=== PATIENT | female | born 1995 | race Caucasian/White ===

== ENCOUNTER → 2016-06-08 | Outpatient (REF) | payer BC | LOC: M SFHCLERA 14:24 | PROVIDERS: ATTEND Nurse Practitioner Family | DX: R30.0 Dysuria (principal) ==

== ENCOUNTER 2016-07-11 03:26 | Emergency (ER) | payer BC ==
[2016-07-11] MEDS ORDERED: KETOROLAC 30 MG/ML VIAL (J1885) As Ordered ONE (06:30)
[2016-07-11] MEDS ORDERED: BACTRIM 160MG/800MG DS TAB As Ordered ONE (06:31)
[2016-07-11 06:42] LABS: CONTROL LINE HCG INT CTR LINE PRESENT
[2016-07-11 06:46] LABS: ANION GAP 8 MEQ/L (8-16); BLOOD UREA NITROGEN 14 MG/DL (7-18); CALCIUM LEVEL 8.8 MG/DL (8.5-10.1); CARBON DIOXIDE LEVEL 27 MEQ/L (21-32); CHLORIDE LEVEL 108 MEQ/L (98-107); GLUCOSE, FASTING 101 MG/DL (70-105); POTASSIUM SERUM 3.5 MEQ/L (3.5-5.1); SODIUM LEVEL 143 MEQ/L (136-145)
[2016-07-11 06:51] LABS: BASO % 0.4 % (0.0-1.0); EOS # 0.2 K/mm3 (0.0-0.50); EOS % 2.7 % (0.0-3.0); LARGE UNSTAINED CELL # 0.2 K/mm3 (0.0-0.4); LARGE UNSTAINED CELL % 2.1 % (0.0-4.0); LYMPH # 1.9 K/mm3 (1.5-6.5); LYMPH % 23.3 % (24.0-44.0); MEAN CORPUSCULAR HEMOGLOBIN 20.3 pg (27.0-33.0); MEAN CORPUSCULAR VOLUME 69.9 fl (80.0-96.0); MONO # 0.4 K/mm3 (0.0-0.8); MONO % 5.8 % (0.0-5.0); NEUTROPHILS # 4.9 K/mm3 (1.8-7.7); NEUTROPHILS % 65.8 % (36.0-66.0); PLATELET COUNT, AUTOMATED 268 k/mm3 (150-450); RED CELL DISTRIBUTION WIDTH 16.5 % (11.5-14.5); WHITE BLOOD COUNT 7.5 K/mm3 (4.0-10.0)
[2016-07-11 06:53] LABS: ADD MORPHOLOGY? YES
[2016-07-11 07:18] LABS: ANISOCYTOSIS 1+; HYPOCHROMASIA 1+
[2016-07-11 07:19] LABS: MICROCYTOSIS 1+
--- NOTE | 2016-07-11 07:20 | REPUSA ---
CLINICAL HISTORY: Left flank pain. TECHNIQUE: Multiple axial and coronal CT images were obtained through the abdomen and pelvis without administration of oral or IV contrast material. COMMENTS: The liver is of uniform attenuation without mass or defect. There is no intra or extrahepatic biliary ductal dilatation. The spleen is normal. The gallbladder is within normal limits. The pancreas is of normal contour and attenuation characteristics. There is no evidence of adrenal mass. The kidneys are normal in size, shape and configuration. No renal or ureteral calculi are identified. There is no hydroureter or hydronephrosis. There is no evidence for appendicitis. There is no bowel wall thickening. No evidence for small or la rge bowel obstruction. There is no evidence of abdominal ascites or lymphadenopathy. There is no evidence of intrinsic or extrinsic bladder mass. There is no pelvic ascites or lymphadeno cuca. Diffuse thickening of the wall of the bladder. Images of the lung bases show no evidence of pleural or parenchymal mass. There are no pleural effusi ons. Atelectatic changes in the lingula and right middle lobe. The bony structures are free of lytic or blastic lesions. IMPRESSION: Thickened bladder suggestive of fact cystitis. Moderate constipation. Thank you for your kind referral of this patient.
--- NOTE | 2016-07-11 09:13 | EDDOCDS ---
Nurse's Notes [facility] Name: Stephanie Duron Age: 20 yrs Sex: Female : 1995 Arrival Date: 07/11/2016 Time: 03:26 Bed 17 Private MD: Diagnosis: Urinary tract infection, site not specified;Constipation Presentation: 07/11 03:45 Presenting complaint: Patient states: Had a UTI a month ago and was seen at the Ur[facility], reports she was given antibiotics but only took 2-3 days of them. Not presents with low back pain worse on left, nausea and burning with urination. Pain is currently 6/10. Adult Sepsis Screening: The patient does not have new or worsening altered mentation. Patient's respiratory rate is less than 22. Systolic blood pressure is greater than 100. Patient has a qSOFA score of 0- Negative Sepsis Screen. Suicide/Homicide risk assessment- the patient denies having any suicidal and/or homicidal ideations and does not present with any other emotional, behavioral or mental health complaints. 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 Transition of care: patient was not received from another setting of care. 03:45 Acuity: JERAD Level 3 lf1 03:45 Method Of Arrival: Walkin/Carried/Asstd lf1 Triage Assessment: 03:48 General: Appears in no apparent distress, comfortable, Behavior is cooperative. Pain: lf1 Location: low back, left flank Pain currently is 7 out of 10 on a pain scale. HIV screening NA for this visit. Neurological: Level of Consciousness is awake, alert, Oriented to person, place, time. EENT: No deficits noted. Cardiovascular: Chest pain is denied. Respiratory: Respiratory effort is even, unlabored. GI: Reports nausea. : Reports burning with urination. Derm: Skin is normal. 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 none - PMHx: Hypothyroidism; - PSHx: none; - Social history: Smoking status: Patient states was never smoker of tobacco. No barriers to communication noted, The patient speaks fluent Barbadian, Speaks appropriately for age, Preferred Language: Barbadian. - Family history: Not pertinent. - : The pt / caregiver states he / she is not on anticoagulants. Home medication list is obtained from the patient. - Exposure Risk Screening:: None identified. Screenin:52 Screening information is obtained from the patient. Fall risk: No risks identified. lf1 Assistance ADL's: requires no assistance with activities of daily living. Abuse/DV Screen: The patient / caregiver reports he/she is: not in a situation that causes fear, pain or injury. Nutritional screening: No deficits noted. Advance Directives: Currently, there is no health care proxy. home support is adequate. Assessment: 05:52 General: Appears in no apparent distress, comfortable, Behavior is appropriate for age, af2 cooperative. Neurological: Level of Consciousness is awake, alert, Oriented to person, place, time. Respiratory: Airway is patent Respiratory effort is even, unlabored. : Reports burning with urination pain in right flank(s) urgency. Derm: Skin is normal. 06:28 Reassessment: Patient appears in no apparent distress at this time. Patient states af2 symptoms have not improved. 07:15 General: Appears in no apparent distress, comfortable, Behavior is appropriate for age, mlb1 cooperative. Pain: Location: low back area Pain currently is 5 out of 10 on a pain scale. Neurological: No deficits noted. Musculoskeletal: No deficits noted. 08:10 General: Appears in no apparent distress, comfortable, Behavior is appropriate for age, mlb1 cooperative. Pain: Location: low back area Pain currently is 5 out of 10 on a pain scale. 08:52 General: Appears in no apparent distress, comfortable, Behavior is appropriate for age, mlb1 cooperative. Pain: Denies pain. Respiratory: No deficits noted. Musculoskeletal: No deficits noted. 09:10 General: Appears in no apparent distress, comfortable, Behavior is appropriate for age, mlb1 cooperative. Pain: Denies pain. Respiratory: No deficits noted. Derm: No deficits noted. Vital Signs: 03:48 BP 143 / 93; Pulse 94; Resp 16; Temp 99.1(TE); Pulse Ox 96% on R/A; Weight 61.23 kg lf1 (R); Height 5 ft. 9 in. (175.26 cm) (R); Pain 7/10; 09:10 BP 113 / 70; Pulse 76; Resp 16; Temp 98.1(O); Pulse Ox 98% on R/A; Pain 0/10; mlb1 03:48 Body Mass Index 19.94 (61.23 kg, 175.26 cm) lf1 Vitals: 03:48 Log In Time: July 11, 2016 at 03:28. lf1 ED Course: 03:27 Patient visited by May Walsh Reg. hs2 03:27 Patient moved to Waiting hs2 03:44 Patient moved to Triage 1 lf1 03:47 Triage Initiated lf1 03:55 Patient moved to Pre RCE lf1 05:03 Supriya Vyas RN is Primary Nurse. lf1 05:03 Patient moved to 17 lf1 05:37 Luis Gardner DO is Attending Physician. cs11 05:37 Patient visited by Luis Gardner DO. cs11 05:47 UA Sent. af2 05:51 Urine Culture Sent. af2 05:52 The patient / caregiver is instructed regarding the plan of care and ED course. af2 05:52 No IV's were initiated during this patient's visit. No procedures done that require af2 assistance. 05:53 Patient visited by Supriya Vyas RN. af2 06:01 ON LICENSE OF [facility] Payment Agreement was scanned into [employer] and attached to record. pm4 06:27 Patient visited by Supriya Vyas RN. af2 06:27 HCG,Serum Qualitative Sent. af2 06:28 MED Profile Sent. af2 06:28 CBC with Diff Sent. af2 06:28 Inserted saline lock: 20 gauge in right antecubital area and blood collected. The af2 patient tolerated the procedure well. 06:57 Attending Physician role handed off by Luis Gardner DO sd1 06:57 Atiya Coombs MD is Attending Physician. sd1 07:15 Patient visited by Victor M Plummer, MARIAH. mlb1 07:37 CT ABD & PELVIS: No Contrast Returned. EDMS 07:59 GC & Chlamydia Amplification Sent. mlb1 08:11 Patient visited by Victor M Plummer, MARIAH. mlb1 08:52 Patient visited by Victor M Plummer, RN. mlb1 09:01 [facility] is Referral Physician. sd1 09:11 Patient visited by Victor M Plummer, RN. mlb1 09:11 Discontinued lock intact, bleeding controlled, pressure dressing applied, No mlb1 redness/swelling at site. Administered Medications: 06:44 Drug: ketorolac 30 mg [ketorolac 30 mg/mL (1 mL) injection solution (1 mL)] Route: IVP; af2 Site: right antecubital; 06:45 Drug: Trimethoprim-Sulfamethoxazole (MRSA dose) 2 tabs [sulfamethoxazole 800 af2 mg-trimethoprim 160 mg tablet (2 tabs)] Route: PO; 06:45 Drug: NS 0.9% 1000 ml [sodium chloride 0.9 % intravenous solution] Route: IV; Rate: af2 bolus; Site: right antecubital; Order Results: Lab Order: UA; SPEC'M 07/11/16 05:43 Test: APPEARANCE, URINE; Value: CLEAR; Range: CLEAR; Status: F Test: COLOR, URINE; Value: STRAW; Range: YELLOW; Status: F Test: PH,URINE; Value: 6.0; Range: 5.0-9.0; Units: UNITS; Status: F Test: SPECIFIC GRAVITY URINE AUTO; Value: 1.010; Range: 1.002-1.035; Status: F Test: PROTEIN, URINE AUTO; Value: NEGATIVE; Range: NEGATIVE; Units: mg/dL; Status: F Test: GLUCOSE, URINE (UA) AUTO; Value: NEGATIVE; Range: NEGATIVE; Units: mg/dL; Status: F Test: KETONE, URINE AUTO; Value: NEGATIVE; Range: NEGATIVE; Units: mg/dL; Status: F Test: UROBILINOGEN, URINE AUTO; Value: 0.2; Range: 0.0-2.0; Units: mg/dL; Status: F Test: BILIRUBIN, URINE AUTO; Value: NEGATIVE; Range: NEGATIVE; Status: F Test: NITRITE, URINE AUTO; Value: NEGATIVE; Range: NEGATIVE; Status: F Test: LEUKOCYTE ESTERASE, URINE AUTO; Value: TRACE; Range: NEGATIVE; Abnormal: Above high normal; Status: F Test: BLOOD, URINE BLOOD; Value: 3+; Range: NEGATIVE; Abnormal: Above high normal; Status: F Test: WBC, URINE AUTO; Value: 3; Range: 0-3; Units: /HPF; Status: F Test: RBC, URINE AUTO; Value: 110; Range: 0-3; Abnormal: Above high normal; Units: /HPF; Status: F Test: BACTERIA, URINE AUTO; Value: NEGATIVE; Range: NEGATIVE; Status: F Test: SQUAMOUS EPITHELIAL CELL UR AU; Value: 3; Range: 0-6; Units: /HPF; Status: F Test: MUCUS, URINE; Value: SMALL; Range: NEGATIVE; Status: F Test: HYALINE CAST, URINE AUTO; Value: 0; Range: 0-1; Units: /LPF; Status: F Lab Order: CBC with Diff; SPEC'M 07/11/16 06:25 Test: WHITE BLOOD COUNT; Value: 7.5; Range: 4.0-10.0; Units: K/mm3; Status: F Test: RED BLOOD COUNT; Value: 4.01; Range: 4.00-5.40; Units: M/mm3; Status: F Test: HEMOGLOBIN; Value: 8.1; Range: 12.0-16.0; Abnormal: Below low normal; Units: g/dl; Status: F Test: HEMATOCRIT; Value: 28.0; Range: 36.0-47.0; Abnormal: Below low normal; Units: %; Status: F Test: MEAN CORPUSCULAR VOLUME; Value: 69.9; Range: 80.0-96.0; Abnormal: Below low normal; Units: fl; Status: F Test: MEAN CORPUSCULAR HEMOGLOBIN; Value: 20.3; Range: 27.0-33.0; Abnormal: Below low normal; Units: pg; Status: F Test: MEAN CORPUSCULAR HGB CONC; Value: 29.0; Range: 32.0-36.5; Abnormal: Below low normal; Units: g/dl; Status: F Test: RED CELL DISTRIBUTION WIDTH; Value: 16.5; Range: 11.5-14.5; Abnormal: Above high normal; Units: %; Status: F Test: PLATELET COUNT, AUTOMATED; Value: 268; Range: 150-450; Units: k/mm3; Status: F Test: NEUTROPHILS %; Value: 65.8; Range: 36.0-66.0; Units: %; Status: F Test: LYMPH %; Value: 23.3; Range: 24.0-44.0; Abnormal: Below low normal; Units: %; Status: F Test: MONO %; Value: 5.8; Range: 0.0-5.0; Abnormal: Above high normal; Units: %; Status: F Test: EOS %; Value: 2.7; Range: 0.0-3.0; Units: %; Status: F Test: BASO %; Value: 0.4; Range: 0.0-1.0; Units: %; Status: F Test: LARGE UNSTAINED CELL %; Value: 2.1; Range: 0.0-4.0; Units: %; Status: F Test: NEUTROPHILS #; Value: 4.9; Range: 1.8-7.7; Units: K/mm3; Status: F Test: LYMPH #; Value: 1.9; Range: 1.5-6.5; Units: K/mm3; Status: F Test: MONO #; Value: 0.4; Range: 0.0-0.8; Units: K/mm3; Status: F Test: EOS #; Value: 0.2; Range: 0.0-0.50; Units: K/mm3; Status: F Test: BASO #; Value: 0.0; Range: 0.0-0.2; Units: K/mm3; Status: F Test: LARGE UNSTAINED CELL #; Value: 0.2; Range: 0.0-0.4; Units: K/mm3; Status: F Lab Order: MED Profile; SPEC'M 07/11/16 06:25 Test: GLUCOSE, FASTING; Value: 101; Range: 70-105; Units: MG/DL; Status: F Test: BLOOD UREA NITROGEN; Value: 14; Range: 7-18; Units: MG/DL; Status: F Test: CREATININE FOR GFR; Value: 0.80; Range: 0.55-1.02; Units: MG/DL; Status: F Test: SODIUM LEVEL; Value: 143; Range: 136-145; Units: MEQ/L; Status: F Test: POTASSIUM SERUM; Value: 3.5; Range: 3.5-5.1; Units: MEQ/L; Status: F Test: CHLORIDE LEVEL; Value: 108; Range: 98-107; Abnormal: Above high normal; Units: MEQ/L; Status: F Test: CARBON DIOXIDE LEVEL; Value: 27; Range: 21-32; Units: MEQ/L; Status: F Test: ANION GAP; Value: 8; Range: 8-16; Units: MEQ/L; Status: F Test: CALCIUM LEVEL; Value: 8.8; Range: 8.5-10.1; Units: MG/DL; Status: F Lab Order: HCG,Serum Qualitative; SPEC'M 07/11/16 06:25 Test: HCG, SERUM QUALITATIVE; Value: NEGATIVE; Range: NEGATIVE; Status: F Lab Order: RBC MORPH PROF NO CHARGE; SPEC'M 07/11/16 06:25 Test: PLATELET ESTIMATE; Range: NORMAL; Status: I Test: HYPOCHROMASIA; Value: 1+; Status: F Test: ANISOCYTOSIS; Value: 1+; Status: F Test: MICROCYTOSIS; Value: 1+; Status: F Test: PLATELET ESTIMATE; Value: NORMAL; Range: NORMAL; Status: F Radiology Order: CT ABD & PELVIS: No Contrast Test: CT ABD & PELVIS: No Contrast REASON FOR EXAMINATION: Renal colic; ; CLINICAL HISTORY: Left flank pain.; TECHNIQUE: Multiple axial and coronal CT images were obtained through the abdomen and pelvis without; administration of oral or IV contrast material.; COMMENTS:; The liver is of uniform attenuation without mass or defect. There is no intra or extrahepatic biliary; ductal dilatation. The spleen is normal. The gallbladder is within normal limits. The pancreas is of; normal contour and attenuation characteristics. There is no evidence of adrenal mass.; The kidneys are normal in size, shape and configuration. No renal or ureteral calculi are identified.; There is no hydroureter or hydronephrosis.; There is no evidence for appendicitis. There is no bowel wall thickening. No evidence for small or la; rge bowel obstruction. There is no evidence of abdominal ascites or lymphadenopathy.; There is no evidence of intrinsic or extrinsic bladder mass. There is no pelvic ascites or lymphadeno; cuca.; Diffuse thickening of the wall of the bladder.; Images of the lung bases show no evidence of pleural or parenchymal mass. There are no pleural effusi; ons. Atelectatic changes in the lingula and right middle lobe.; The bony structures are free of lytic or blastic lesions.; IMPRESSION:; Thickened bladder suggestive of fact cystitis.; Moderate constipation.; Thank you for your kind referral of this patient.; ; Outcome: 07:15 CT Study completed. mlb1 09:01 Discharge ordered by Provider. sd1 09:11 Discharge Assessment: Patient awake, alert and oriented x 3. No cognitive and/or mlb1 functional deficits noted. Patient verbalized understanding of disposition instructions. patient administered narcotics - no. The following High Risk Discharge criteria are identified: None. Discharged to home ambulatory. Condition: good. Discharge instructions given to patient, Instructed on discharge instructions, follow up and referral plans. medication usage, no driving heavy equipment, Demonstrated understanding of instructions, medications, Pt was receptive of discharge instructions/ teaching. Prescriptions given X 3. Property sent home with patient. 09:11 Patient left the ED. mlb1 Signatures: Dispatcher Med[employer] EDMS Atiya Coombs MD MD sd1 Victor M Plummer RN RN mlb1 Celine McintyreRN RN lf1 Luis Gardner, DO cs11 Supriya Vyas RN RN af2 May Walsh, Reg Reg hs2 Oliverio Carter, Reg Reg pm4 [employer]BIND
--- NOTE | 2016-07-11 09:13 | EDDOCDS ---
Physician Documentation [facility] Name: Stephanie Duron Age: 20 yrs Sex: Female : 1995 Arrival Date: 07/11/2016 Time: 03:26 Bed 17 Private MD: Disposition: 07/11/16 09:01 Discharged to Home/Self Care. Impression: Urinary tract infection, site not specified, Constipation. - Condition is Stable. - Discharge Instructions: Urinary Tract Infection, Constipation, Adult, [id number], Urinary Tract Infection, [id number]. - Prescriptions for Cipro 500 mg Oral Tablet - take 1 tablet by ORAL route every 12 hours; 14 tablet. Naprosyn 500 mg Oral Tablet - take 1 tablet by ORAL route 2 times per day take with food; 30 tablet. Magnesium Citrate Oral Solution - take 1 bottle by ORAL route once daily; 1 bottle. - Medication Reconciliation, Local Pharmacy Hours form. - [facility]; When: Call to arrange an appointment. - Problem is an ongoing problem. - Symptoms have improved. Historical: - Allergies: Amoxicillin (Anaphylaxis); PENICILLINS (Anaphylaxis, Hives); - Home Meds: 1. none - PMHx: Hypothyroidism; - PSHx: none; - Social history: Smoking status: Patient states was never smoker of tobacco. No barriers to communication noted, The patient speaks fluent Vietnamese, Speaks appropriately for age, Preferred Language: Vietnamese. - Family history: Not pertinent. - : The pt / caregiver states he / she is not on anticoagulants. Home medication list is obtained from the patient. - Exposure Risk Screening:: None identified. 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 9 in. (175.26 cm) (R); Pain 7/10; 09:10 BP 113 / 70; Pulse 76; Resp 16; Temp 98.1(O); Pulse Ox 98% on R/A; Pain 0/10; mlb1 03:48 Body Mass Index 19.94 (61.23 kg, 175.26 cm) lf1 MDM: 03:56 UA Ordered. EDMS 05:50 Urine Culture Ordered. EDMS 05:53 Trimethoprim-Sulfamethoxazole (MRSA dose) 160 mg-800 mg (DS) 2 tabs PO once ordered. cs11 06:01 Financial registration complete. pm4 06:01 [facility] Payment Agreement was scanned into [employer] and attached to record. pm4 06:10 UA Reviewed. cs11 06:11 IV Saline Lock ordered. cs11 06:11 NS 0.9% 1000 ml IV at bolus once ordered. cs11 06:11 ketorolac 30 mg IVP once ordered. cs11 06:12 CT ABD & PELVIS: No Contrast Ordered. EDMS 06:12 CBC with Diff Ordered. EDMS 06:12 MED Profile Ordered. EDMS 06:18 HCG,Serum Qualitative Ordered. EDMS 06:54 RBC MORPH PROF NO CHARGE Ordered. EDMS 07:04 CBC with Diff Reviewed. sd1 07:04 MED Profile Reviewed. sd1 07:04 HCG,Serum Qualitative Reviewed. sd1 07:36 CBC with Diff Reviewed. sd1 07:36 RBC MORPH PROF NO CHARGE Reviewed. sd1 07:40 CT ABD & PELVIS: No Contrast Reviewed. sd1 07:41 GC & Chlamydia Amplification Ordered. EDMS Administered Medications: 06:44 Drug: ketorolac 30 mg [ketorolac 30 mg/mL (1 mL) injection solution (1 mL)] Route: IVP; af2 Site: right antecubital; 06:45 Drug: Trimethoprim-Sulfamethoxazole (MRSA dose) 2 tabs [sulfamethoxazole 800 af2 mg-trimethoprim 160 mg tablet (2 tabs)] Route: PO; 06:45 Drug: NS 0.9% 1000 ml [sodium chloride 0.9 % intravenous solution] Route: IV; Rate: af2 bolus; Site: right antecubital; Signatures: Dispatcher [employer] EDMS Atiya Coombs MD MD sd1 Victor M Plummer RN RN mlb1 Celine Mcintyre RN RN lf1 Luis Gardner, DO cs11 Supriya Vyas RN RN af2 Oliverio Carter, Reg Reg pm4 The chart was reviewed and I authenticate all verbal orders and agree with the evaluation and treatment provided.Attachments: 06:01 [facility] Payment Agreement pm4 MTDD
--- NOTE | 2016-07-13 10:12 | EDDOCDS ---
Physician Documentation [facility] Name: Stephanie Duron Age: 20 yrs Sex: Female : 1995 Arrival Date: 07/11/2016 Time: 03:26 Bed 17 Private MD: Disposition: 07/11/16 09:01 Discharged to Home/Self Care. Impression: Urinary tract infection, site not specified, Constipation. - Condition is Stable. - Discharge Instructions: Urinary Tract Infection, Constipation, Adult, [id number], Urinary Tract Infection, [id number]. - Prescriptions for Cipro 500 mg Oral Tablet - take 1 tablet by ORAL route every 12 hours; 14 tablet. Naprosyn 500 mg Oral Tablet - take 1 tablet by ORAL route 2 times per day take with food; 30 tablet. Magnesium Citrate Oral Solution - take 1 bottle by ORAL route once daily; 1 bottle. - Medication Reconciliation, Local Pharmacy Hours form. - [facility]; When: Call to arrange an appointment. - Problem is an ongoing problem. - Symptoms have improved. Historical: - Allergies: Amoxicillin (Anaphylaxis); PENICILLINS (Anaphylaxis, Hives); - Home Meds: 1. none - PMHx: Hypothyroidism; - PSHx: none; - Social history: Smoking status: Patient states was never smoker of tobacco. No barriers to communication noted, The patient speaks fluent Belgian, Speaks appropriately for age, Preferred Language: Belgian. - Family history: Not pertinent. - : The pt / caregiver states he / she is not on anticoagulants. Home medication list is obtained from the patient. - Exposure Risk Screening:: None identified. 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 9 in. (175.26 cm) (R); Pain 7/10; 09:10 BP 113 / 70; Pulse 76; Resp 16; Temp 98.1(O); Pulse Ox 98% on R/A; Pain 0/10; mlb1 03:48 Body Mass Index 19.94 (61.23 kg, 175.26 cm) lf1 MDM: 03:56 UA Ordered. EDMS 05:50 Urine Culture Ordered. EDMS 05:53 Trimethoprim-Sulfamethoxazole (MRSA dose) 160 mg-800 mg (DS) 2 tabs PO once ordered. cs11 06:01 Financial registration complete. pm4 06:01 [facility] Payment Agreement was scanned into [employer] and attached to record. pm4 06:10 UA Reviewed. cs11 06:11 IV Saline Lock ordered. cs11 06:11 NS 0.9% 1000 ml IV at bolus once ordered. cs11 06:11 ketorolac 30 mg IVP once ordered. cs11 06:12 CT ABD & PELVIS: No Contrast Ordered. EDMS 06:12 CBC with Diff Ordered. EDMS 06:12 MED Profile Ordered. EDMS 06:18 HCG,Serum Qualitative Ordered. EDMS 06:54 RBC MORPH PROF NO CHARGE Ordered. EDMS 07:04 CBC with Diff Reviewed. sd1 07:04 MED Profile Reviewed. sd1 07:04 HCG,Serum Qualitative Reviewed. sd1 07:36 CBC with Diff Reviewed. sd1 07:36 RBC MORPH PROF NO CHARGE Reviewed. sd1 07:40 CT ABD & PELVIS: No Contrast Reviewed. sd1 07:41 GC & Chlamydia Amplification Ordered. EDMS 08 12:08 T-Sheet-- Draft Copy was scanned into [employer] and attached to record. gb 12:08 Radiology Report was scanned into [employer] and attached to record. gb Administered Medications: 07/11 06:44 Drug: ketorolac 30 mg [ketorolac 30 mg/mL (1 mL) injection solution (1 mL)] Route: IVP; af2 Site: right antecubital; 06:45 Drug: Trimethoprim-Sulfamethoxazole (MRSA dose) 2 tabs [sulfamethoxazole 800 af2 mg-trimethoprim 160 mg tablet (2 tabs)] Route: PO; 06:45 Drug: NS 0.9% 1000 ml [sodium chloride 0.9 % intravenous solution] Route: IV; Rate: af2 bolus; Site: right antecubital; Signatures: Dispatcher Med[employer] EDIN Atiya Coombs MD MD sd1 Angela Colón, Reg Reg gb Victor M Plummer RN RN mlb1 Celine Mcintyre RN RN lf1 Luis Gardner DO DO cs11 Supriya Vyas,RN RN af2 Oliverio Carter, Reg Reg pm4 The chart was reviewed and I authenticate all verbal orders and agree with the evaluation and treatment provided.Attachments: 06:01 [facility] Payment Agreement pm4 07/12 12:08 T-Sheet-- Draft Copy gb Chart Complete MTDD
--- NOTE | 2016-07-13 10:12 | EDDOCDS ---
Physician Documentation [facility] Name: Stephanie Duron Age: 20 yrs Sex: Female : 1995 Arrival Date: 07/11/2016 Time: 03:26 Bed 17 Private MD: Disposition: 07/11/16 09:01 Discharged to Home/Self Care. Impression: Urinary tract infection, site not specified, Constipation. - Condition is Stable. - Discharge Instructions: Urinary Tract Infection, Constipation, Adult, Tkek-ad-Jcho, Urinary Tract Infection, [id number]. - Prescriptions for Cipro 500 mg Oral Tablet - take 1 tablet by ORAL route every 12 hours; 14 tablet. Naprosyn 500 mg Oral Tablet - take 1 tablet by ORAL route 2 times per day take with food; 30 tablet. Magnesium Citrate Oral Solution - take 1 bottle by ORAL route once daily; 1 bottle. - Medication Reconciliation, Local Pharmacy Hours form. - [facility] up[facility]; When: Call to arrange an appointment. - Problem is an ongoing problem. - Symptoms have improved. Historical: - Allergies: Amoxicillin (Anaphylaxis); PENICILLINS (Anaphylaxis, Hives); - Home Meds: 1. none - PMHx: Hypothyroidism; - PSHx: none; - Social history: Smoking status: Patient states was never smoker of tobacco. No barriers to communication noted, The patient speaks fluent Chinese, Speaks appropriately for age, Preferred Language: Chinese. - Family history: Not pertinent. - : The pt / caregiver states he / she is not on anticoagulants. Home medication list is obtained from the patient. - Exposure Risk Screening:: None identified. 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 9 in. (175.26 cm) (R); Pain 7/10; 09:10 BP 113 / 70; Pulse 76; Resp 16; Temp 98.1(O); Pulse Ox 98% on R/A; Pain 0/10; mlb1 03:48 Body Mass Index 19.94 (61.23 kg, 175.26 cm) lf1 MDM: 03:56 UA Ordered. EDMS 05:50 Urine Culture Ordered. EDMS 05:53 Trimethoprim-Sulfamethoxazole (MRSA dose) 160 mg-800 mg (DS) 2 tabs PO once ordered. cs11 06:01 Financial registration complete. pm4 06:01 [facility] Payment Agreement was scanned into [employer] and attached to record. pm4 06:10 UA Reviewed. cs11 06:11 IV Saline Lock ordered. cs11 06:11 NS 0.9% 1000 ml IV at bolus once ordered. cs11 06:11 ketorolac 30 mg IVP once ordered. cs11 06:12 CT ABD & PELVIS: No Contrast Ordered. EDMS 06:12 CBC with Diff Ordered. EDMS 06:12 MED Profile Ordered. EDMS 06:18 HCG,Serum Qualitative Ordered. EDMS 06:54 RBC MORPH PROF NO CHARGE Ordered. EDMS 07:04 CBC with Diff Reviewed. sd1 07:04 MED Profile Reviewed. sd1 07:04 HCG,Serum Qualitative Reviewed. sd1 07:36 CBC with Diff Reviewed. sd1 07:36 RBC MORPH PROF NO CHARGE Reviewed. sd1 07:40 CT ABD & PELVIS: No Contrast Reviewed. sd1 07:41 GC & Chlamydia Amplification Ordered. EDMS 08 12:08 T-Sheet-- Draft Copy was scanned into [employer] and attached to record. gb 12:08 Radiology Report was scanned into [employer] and attached to record. gb Administered Medications: 07/11 06:44 Drug: ketorolac 30 mg [ketorolac 30 mg/mL (1 mL) injection solution (1 mL)] Route: IVP; af2 Site: right antecubital; 06:45 Drug: Trimethoprim-Sulfamethoxazole (MRSA dose) 2 tabs [sulfamethoxazole 800 af2 mg-trimethoprim 160 mg tablet (2 tabs)] Route: PO; 06:45 Drug: NS 0.9% 1000 ml [sodium chloride 0.9 % intravenous solution] Route: IV; Rate: af2 bolus; Site: right antecubital; Signatures: Dispatcher Med[employer] EDSD Atiya Coombs MD MD sd1 Angela Colón, Reg Reg gb Victor M Plummer RN RN mlb1 Celine Mcintyre RN RN lf1 Luis Gardner DO DO cs11 Supriya Vyas,RN RN af2 Olievrio Carter, Reg Reg pm4 The chart was reviewed and I authenticate all verbal orders and agree with the evaluation and treatment provided.Attachments: 06:01 [facility] Payment Agreement pm4 07/12 12:08 T-Sheet-- Draft Copy gb Chart Complete MTDD
--- NOTE | 2016-07-13 10:13 | EDDOCDS ---
Nurse's Notes [facility] Name: Stephanie Duron Age: 20 yrs Sex: Female : 1995 Arrival Date: 07/11/2016 Time: 03:26 Bed 17 Private MD: Diagnosis: Urinary tract infection, site not specified;Constipation Presentation: 07/11 03:45 Presenting complaint: Patient states: Had a UTI a month ago and was seen at the Urgent lf1 Care, reports she was given antibiotics but only took 2-3 days of them. Not presents with low back pain worse on left, nausea and burning with urination. Pain is currently 6/10. Adult Sepsis Screening: The patient does not have new or worsening altered mentation. Patient's respiratory rate is less than 22. Systolic blood pressure is greater than 100. Patient has a qSOFA score of 0- Negative Sepsis Screen. Suicide/Homicide risk assessment- the patient denies having any suicidal and/or homicidal ideations and does not present with any other emotional, behavioral or mental health complaints. Status: Patient is not a donor services technician or dependent. Transition of care: patient was not received from another setting of care. 03:45 Acuity: JERAD Level 3 lf1 03:45 Method Of Arrival: Walkin/Carried/Asstd lf1 Triage Assessment: 03:48 General: Appears in no apparent distress, comfortable, Behavior is cooperative. Pain: lf1 Location: low back, left flank Pain currently is 7 out of 10 on a pain scale. HIV screening NA for this visit. Neurological: Level of Consciousness is awake, alert, Oriented to person, place, time. EENT: No deficits noted. Cardiovascular: Chest pain is denied. Respiratory: Respiratory effort is even, unlabored. GI: Reports nausea. : Reports burning with urination. Derm: Skin is normal. 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 none - PMHx: Hypothyroidism; - PSHx: none; - Social history: Smoking status: Patient states was never smoker of tobacco. No barriers to communication noted, The patient speaks fluent Solomon Islander, Speaks appropriately for age, Preferred Language: Solomon Islander. - Family history: Not pertinent. - : The pt / caregiver states he / she is not on anticoagulants. Home medication list is obtained from the patient. - Exposure Risk Screening:: None identified. Screenin:52 Screening information is obtained from the patient. Fall risk: No risks identified. lf1 Assistance ADL's: requires no assistance with activities of daily living. Abuse/DV Screen: The patient / caregiver reports he/she is: not in a situation that causes fear, pain or injury. Nutritional screening: No deficits noted. Advance Directives: Currently, there is no health care proxy. home support is adequate. Assessment: 05:52 General: Appears in no apparent distress, comfortable, Behavior is appropriate for age, af2 cooperative. Neurological: Level of Consciousness is awake, alert, Oriented to person, place, time. Respiratory: Airway is patent Respiratory effort is even, unlabored. : Reports burning with urination pain in right flank(s) urgency. Derm: Skin is normal. 06:28 Reassessment: Patient appears in no apparent distress at this time. Patient states af2 symptoms have not improved. 07:15 General: Appears in no apparent distress, comfortable, Behavior is appropriate for age, mlb1 cooperative. Pain: Location: low back area Pain currently is 5 out of 10 on a pain scale. Neurological: No deficits noted. Musculoskeletal: No deficits noted. 08:10 General: Appears in no apparent distress, comfortable, Behavior is appropriate for age, mlb1 cooperative. Pain: Location: low back area Pain currently is 5 out of 10 on a pain scale. 08:52 General: Appears in no apparent distress, comfortable, Behavior is appropriate for age, mlb1 cooperative. Pain: Denies pain. Respiratory: No deficits noted. Musculoskeletal: No deficits noted. 09:10 General: Appears in no apparent distress, comfortable, Behavior is appropriate for age, mlb1 cooperative. Pain: Denies pain. Respiratory: No deficits noted. Derm: No deficits noted. Vital Signs: 03:48 BP 143 / 93; Pulse 94; Resp 16; Temp 99.1(TE); Pulse Ox 96% on R/A; Weight 61.23 kg lf1 (R); Height 5 ft. 9 in. (175.26 cm) (R); Pain 7/10; 09:10 BP 113 / 70; Pulse 76; Resp 16; Temp 98.1(O); Pulse Ox 98% on R/A; Pain 0/10; mlb1 03:48 Body Mass Index 19.94 (61.23 kg, 175.26 cm) lf1 Vitals: 03:48 Log In Time: July 11, 2016 at 03:28. lf1 ED Course: 03:27 Patient visited by May Walsh Reg. hs2 03:27 Patient moved to Waiting hs2 03:44 Patient moved to Triage 1 lf1 03:47 Triage Initiated lf1 03:55 Patient moved to Pre RCE lf1 05:03 Supriya Vyas RN is Primary Nurse. lf1 05:03 Patient moved to 17 lf1 05:37 Luis Gardner DO is Attending Physician. cs11 05:37 Patient visited by Luis Gardner DO. cs11 05:47 UA Sent. af2 05:51 Urine Culture Sent. af2 05:52 The patient / caregiver is instructed regarding the plan of care and ED course. af2 05:52 No IV's were initiated during this patient's visit. No procedures done that require af2 assistance. 05:53 Patient visited by Supriya Vyas RN. af2 06:01 [facility] Payment Agreement was scanned into [employer] and attached to record. pm4 06:27 Patient visited by Supriya Vyas RN. af2 06:27 HCG,Serum Qualitative Sent. af2 06:28 MED Profile Sent. af2 06:28 CBC with Diff Sent. af2 06:28 Inserted saline lock: 20 gauge in right antecubital area and blood collected. The af2 patient tolerated the procedure well. 06:57 Attending Physician role handed off by Luis Gardner DO sd1 06:57 Atiya Coombs MD is Attending Physician. sd1 07:15 Patient visited by Victor M Plummer, MARIAH. mlb1 07:37 CT ABD & PELVIS: No Contrast Returned. EDMS 07:59 GC & Chlamydia Amplification Sent. mlb1 08:11 Patient visited by Victor M Plummer, MARIAH. mlb1 08:52 Patient visited by Victor M Plummer, RN. mlb1 09:01 [facility] is Referral Physician. sd1 09:11 Patient visited by Victor M Plummer, RN. mlb1 09:11 Discontinued lock intact, bleeding controlled, pressure dressing applied, No mlb1 redness/swelling at site. 07/12 12:08 T-Sheet-- Draft Copy was scanned into [employer] and attached to record. gb 12:08 Radiology Report was scanned into [employer] and attached to record. gb Administered Medications: 07/11 06:44 Drug: ketorolac 30 mg [ketorolac 30 mg/mL (1 mL) injection solution (1 mL)] Route: IVP; af2 Site: right antecubital; 06:45 Drug: Trimethoprim-Sulfamethoxazole (MRSA dose) 2 tabs [sulfamethoxazole 800 af2 mg-trimethoprim 160 mg tablet (2 tabs)] Route: PO; 06:45 Drug: NS 0.9% 1000 ml [sodium chloride 0.9 % intravenous solution] Route: IV; Rate: af2 bolus; Site: right antecubital; Order Results: Lab Order: UA; SPEC'M 07/11/16 05:43 Test: APPEARANCE, URINE; Value: CLEAR; Range: CLEAR; Status: F Test: COLOR, URINE; Value: STRAW; Range: YELLOW; Status: F Test: PH,URINE; Value: 6.0; Range: 5.0-9.0; Units: UNITS; Status: F Test: SPECIFIC GRAVITY URINE AUTO; Value: 1.010; Range: 1.002-1.035; Status: F Test: PROTEIN, URINE AUTO; Value: NEGATIVE; Range: NEGATIVE; Units: mg/dL; Status: F Test: GLUCOSE, URINE (UA) AUTO; Value: NEGATIVE; Range: NEGATIVE; Units: mg/dL; Status: F Test: KETONE, URINE AUTO; Value: NEGATIVE; Range: NEGATIVE; Units: mg/dL; Status: F Test: UROBILINOGEN, URINE AUTO; Value: 0.2; Range: 0.0-2.0; Units: mg/dL; Status: F Test: BILIRUBIN, URINE AUTO; Value: NEGATIVE; Range: NEGATIVE; Status: F Test: NITRITE, URINE AUTO; Value: NEGATIVE; Range: NEGATIVE; Status: F Test: LEUKOCYTE ESTERASE, URINE AUTO; Value: TRACE; Range: NEGATIVE; Abnormal: Above high normal; Status: F Test: BLOOD, URINE BLOOD; Value: 3+; Range: NEGATIVE; Abnormal: Above high normal; Status: F Test: WBC, URINE AUTO; Value: 3; Range: 0-3; Units: /HPF; Status: F Test: RBC, URINE AUTO; Value: 110; Range: 0-3; Abnormal: Above high normal; Units: /HPF; Status: F Test: BACTERIA, URINE AUTO; Value: NEGATIVE; Range: NEGATIVE; Status: F Test: SQUAMOUS EPITHELIAL CELL UR AU; Value: 3; Range: 0-6; Units: /HPF; Status: F Test: MUCUS, URINE; Value: SMALL; Range: NEGATIVE; Status: F Test: HYALINE CAST, URINE AUTO; Value: 0; Range: 0-1; Units: /LPF; Status: F Lab Order: Urine Culture; SPEC'M 07/11/16 05:49 Test: URINE CULTURE; Value: <EXTERNAL COMMENT eCWMed> FULL REPORT IN LAB NOTES (eCW and Medent).; Status: F Test: URINE CULTURE; Value: URINE CULTURE RESULT SPECIMEN APPEARS CONTAMINATED; Status: F Lab Order: CBC with Diff; SPEC'M 07/11/16 06:25 Test: WHITE BLOOD COUNT; Value: 7.5; Range: 4.0-10.0; Units: K/mm3; Status: F Test: RED BLOOD COUNT; Value: 4.01; Range: 4.00-5.40; Units: M/mm3; Status: F Test: HEMOGLOBIN; Value: 8.1; Range: 12.0-16.0; Abnormal: Below low normal; Units: g/dl; Status: F Test: HEMATOCRIT; Value: 28.0; Range: 36.0-47.0; Abnormal: Below low normal; Units: %; Status: F Test: MEAN CORPUSCULAR VOLUME; Value: 69.9; Range: 80.0-96.0; Abnormal: Below low normal; Units: fl; Status: F Test: MEAN CORPUSCULAR HEMOGLOBIN; Value: 20.3; Range: 27.0-33.0; Abnormal: Below low normal; Units: pg; Status: F Test: MEAN CORPUSCULAR HGB CONC; Value: 29.0; Range: 32.0-36.5; Abnormal: Below low normal; Units: g/dl; Status: F Test: RED CELL DISTRIBUTION WIDTH; Value: 16.5; Range: 11.5-14.5; Abnormal: Above high normal; Units: %; Status: F Test: PLATELET COUNT, AUTOMATED; Value: 268; Range: 150-450; Units: k/mm3; Status: F Test: NEUTROPHILS %; Value: 65.8; Range: 36.0-66.0; Units: %; Status: F Test: LYMPH %; Value: 23.3; Range: 24.0-44.0; Abnormal: Below low normal; Units: %; Status: F Test: MONO %; Value: 5.8; Range: 0.0-5.0; Abnormal: Above high normal; Units: %; Status: F Test: EOS %; Value: 2.7; Range: 0.0-3.0; Units: %; Status: F Test: BASO %; Value: 0.4; Range: 0.0-1.0; Units: %; Status: F Test: LARGE UNSTAINED CELL %; Value: 2.1; Range: 0.0-4.0; Units: %; Status: F Test: NEUTROPHILS #; Value: 4.9; Range: 1.8-7.7; Units: K/mm3; Status: F Test: LYMPH #; Value: 1.9; Range: 1.5-6.5; Units: K/mm3; Status: F Test: MONO #; Value: 0.4; Range: 0.0-0.8; Units: K/mm3; Status: F Test: EOS #; Value: 0.2; Range: 0.0-0.50; Units: K/mm3; Status: F Test: BASO #; Value: 0.0; Range: 0.0-0.2; Units: K/mm3; Status: F Test: LARGE UNSTAINED CELL #; Value: 0.2; Range: 0.0-0.4; Units: K/mm3; Status: F Lab Order: MED Profile; SPEC'M 07/11/16 06:25 Test: GLUCOSE, FASTING; Value: 101; Range: 70-105; Units: MG/DL; Status: F Test: BLOOD UREA NITROGEN; Value: 14; Range: 7-18; Units: MG/DL; Status: F Test: CREATININE FOR GFR; Value: 0.80; Range: 0.55-1.02; Units: MG/DL; Status: F Test: SODIUM LEVEL; Value: 143; Range: 136-145; Units: MEQ/L; Status: F Test: POTASSIUM SERUM; Value: 3.5; Range: 3.5-5.1; Units: MEQ/L; Status: F Test: CHLORIDE LEVEL; Value: 108; Range: 98-107; Abnormal: Above high normal; Units: MEQ/L; Status: F Test: CARBON DIOXIDE LEVEL; Value: 27; Range: 21-32; Units: MEQ/L; Status: F Test: ANION GAP; Value: 8; Range: 8-16; Units: MEQ/L; Status: F Test: CALCIUM LEVEL; Value: 8.8; Range: 8.5-10.1; Units: MG/DL; Status: F Lab Order: HCG,Serum Qualitative; SPEC'M 07/11/16 06:25 Test: HCG, SERUM QUALITATIVE; Value: NEGATIVE; Range: NEGATIVE; Status: F Lab Order: RBC MORPH PROF NO CHARGE; SPEC'M 07/11/16 06:25 Test: PLATELET ESTIMATE; Range: NORMAL; Status: I Test: HYPOCHROMASIA; Value: 1+; Status: F Test: ANISOCYTOSIS; Value: 1+; Status: F Test: MICROCYTOSIS; Value: 1+; Status: F Test: PLATELET ESTIMATE; Value: NORMAL; Range: NORMAL; Status: F Lab Order: GC & Chlamydia Amplification; SPEC'M 07/11/16 05:49 Test: CHLAMYDIA DNA AMPLIFICATION; Value: NEGATIVE; Range: NEGATIVE; Status: F Test: GC DNA AMPLIFICATION; Value: NEGATIVE; Range: NEGATIVE; Status: F Radiology Order: CT ABD & PELVIS: No Contrast Test: CT ABD & PELVIS: No Contrast REASON FOR EXAMINATION: Renal colic; ; CLINICAL HISTORY: Left flank pain.; TECHNIQUE: Multiple axial and coronal CT images were obtained through the abdomen and pelvis without; administration of oral or IV contrast material.; COMMENTS:; The liver is of uniform attenuation without mass or defect. There is no intra or extrahepatic biliary; ductal dilatation. The spleen is normal. The gallbladder is within normal limits. The pancreas is of; normal contour and attenuation characteristics. There is no evidence of adrenal mass.; The kidneys are normal in size, shape and configuration. No renal or ureteral calculi are identified.; There is no hydroureter or hydronephrosis.; There is no evidence for appendicitis. There is no bowel wall thickening. No evidence for small or la; rge bowel obstruction. There is no evidence of abdominal ascites or lymphadenopathy.; There is no evidence of intrinsic or extrinsic bladder mass. There is no pelvic ascites or lymphadeno; cuca.; Diffuse thickening of the wall of the bladder.; Images of the lung bases show no evidence of pleural or parenchymal mass. There are no pleural effusi; ons. Atelectatic changes in the lingula and right middle lobe.; The bony structures are free of lytic or blastic lesions.; IMPRESSION:; Thickened bladder suggestive of fact cystitis.; Moderate constipation.; Thank you for your kind referral of this patient.; ; Outcome: 07:15 CT Study completed. mlb1 09:01 Discharge ordered by Provider. sd1 09:11 Discharge Assessment: Patient awake, alert and oriented x 3. No cognitive and/or mlb1 functional deficits noted. Patient verbalized understanding of disposition instructions. patient administered narcotics - no. The following High Risk Discharge criteria are identified: None. Discharged to home ambulatory. Condition: good. Discharge instructions given to patient, Instructed on discharge instructions, follow up and referral plans. medication usage, no driving heavy equipment, Demonstrated understanding of instructions, medications, Pt was receptive of discharge instructions/ teaching. Prescriptions given X 3. Property sent home with patient. 09:11 Patient left the ED. mlb1 Signatures: Dispatcher Med[employer] EDMS Atiya Coombs MD MD sd1 Angela Colón, Reg Reg gb Victor M Plummer RN RN mlb1 Celine McintyreRN RN lf1 Luis Gardner, DO DO cs11 Supriya Vyas RN RN af2 May Walsh, Reg Reg hs2 Oliverio Carter, Reg Reg pm4 Chart Complete MTDD
== END 2016-07-11 09:11 | disposition home or self-care (01) ==
LOC: M ED 03:26
DX: N30.00 Acute cystitis without hematuria (principal); K59.00 Constipation, unspecified; E03.9 Hypothyroidism, unspecified; Z88.0 Allergy status to penicillin
CPT/HCPCS: 36415; 74176; 80048; 81001; 84703; 85025; 87086; 87491; 87591; 96374; 99284; J1885

== ENCOUNTER → 2016-08-01 | Outpatient (REF) | payer BC ==
[2016-08-01 18:28] LABS: MEAN CORPUSCULAR HEMOGLOBIN 20.4 pg (27.0-33.0); MEAN CORPUSCULAR HGB CONC 28.7 g/dl (32.0-36.5); MEAN CORPUSCULAR VOLUME 71.3 fl (80.0-96.0); RED CELL DISTRIBUTION WIDTH 16.9 % (11.5-14.5); WHITE BLOOD COUNT 6.9 K/mm3 (4.0-10.0)
[2016-08-01 19:54] LABS: ALBUMIN 4.2 GM/DL (3.2-5.2); ALBUMIN/GLOBULIN RATIO 1.17 (1.00-1.93); ALKALINE PHOSPHATASE 56 U/L (45-117); ALT/SGPT 10 U/L (12-78); ANION GAP 7 MEQ/L (8-16); AST/SGOT 8 U/L (15-37); BILIRUBIN,TOTAL 0.2 MG/DL (0.2-1.0); BLOOD UREA NITROGEN 19 MG/DL (7-18); CALCIUM LEVEL 8.9 MG/DL (8.5-10.1); CARBON DIOXIDE LEVEL 26 MEQ/L (21-32); CHLORIDE LEVEL 107 MEQ/L (98-107); CREATININE FOR GFR 0.84 MG/DL (0.55-1.02); FERRITIN 2 NG/ML (8-252); GLUCOSE, FASTING 91 MG/DL (70-105); POTASSIUM SERUM 3.9 MEQ/L (3.5-5.1); SODIUM LEVEL 140 MEQ/L (136-145); TOTAL PROTEIN 7.8 GM/DL (6.4-8.2)
[2016-08-05 00:15] LABS: HEMOGLOBIN A 98.2 % (94.0-98.0)
== END ==
LOC: M SFHCLERA 10:27
PROVIDERS: ATTEND Family Medicine
DX: Z86.39 Personal history of other endocrine, nutritional and metabolic disease (principal); Z86.2 Personal history of diseases of the blood and blood-forming organs and certain disorders involving the immune mechanism

== ENCOUNTER → 2016-09-22 | Outpatient (REF) | payer BC | LOC: M SFHCLERA 11:54 | PROVIDERS: ATTEND Nurse Practitioner Family | DX: J02.9 Acute pharyngitis, unspecified (principal); N30.00 Acute cystitis without hematuria ==

== ENCOUNTER → 2017-05-01 | Outpatient (REF) | payer BC | LOC: M SFHCLERA 13:27 | PROVIDERS: ATTEND Nurse Practitioner Family | DX: J02.9 Acute pharyngitis, unspecified (principal) ==

== ENCOUNTER → 2017-06-15 | Outpatient (CLI) | payer OTHER | LOC: M LRY 16:48 | DX: R03.0 Elevated blood-pressure reading, without diagnosis of hypertension (principal); R00.0 Tachycardia, unspecified ==

== ENCOUNTER → 2017-08-24 | Outpatient (REF) | payer OTHER | LOC: M SFHCLERA 19:00 | DX: R53.81 Other malaise (principal) ==

== ENCOUNTER → 2017-09-14 | Outpatient (REF) | payer OTHER | LOC: M SFHCLERA 15:45 | DX: R30.0 Dysuria (principal) | CPT/HCPCS: 87086 ==